=== PATIENT | male | born 1960 | race Caucasian/White ===

== ENCOUNTER 2017-12-06 12:49 | Inpatient (IN) | payer MEDICAID ==
[~2017-12-06] VITALS: Ht 180.3 cm; Wt 50.0 kg
[~2017-12-06 12:49] MED LIST: AMIO200T33 PO; BENA40TA7; CARV6.2551; CARV6.2551 PO; ENAL20TA70 PO; ENALAPRIL; FUR40T GT; FURO20TA3; POTA20TA53; SIMV-13; SPIR25TA89
[2017-12-06] MEDS ORDERED: SODIUM CHLORIDE 0.9% 1,000 ML IV ONE ×3 (13:40→18:30)
[2017-12-06] MEDS ORDERED: VANCOMYCIN 1GM/250ML 250 ML IV ONE (13:45)
[2017-12-06 13:49] LABS: Basophils # (auto) 0 uL; Eosinophils # (auto) 0 uL; Lymphocytes # (auto) 0.4 uL; Monocytes # (auto) 0.7 uL; Red Blood Cells 4.49 10^6/uL (4.5-5.90)
[2017-12-06 13:51] LABS: Basophils % (auto) 0.6 % (0.0-2.0); Eosinophils % (auto) 0.4 % (0.0-7.0); Hematocrit 44.5 % (41.0-53.0); Hemoglobin 15.2 g/dL (13.5-17.5); Lymphocytes % (auto) 4.8 % (10.0-50.0); Mean Corpuscular Hemoglobin 33.9 pg (28.0-32.0); Mean Corpuscular Hgb Conc. 34.2 g/dL (32.0-36.0); Monocytes % (auto) 9.1 % (0.0-12.0); Neutrophils # (auto) 6.9 uL; Neutrophils % (auto) 85.1 % (37.0-80.0); Nucleated Red Blood Cells % 0.5 %; Platelet Count (auto) 58 10^3/uL (140-450); White Blood Cell 8.1 10^3/uL (4.4-10.8)
[2017-12-06 13:56] LABS: Red Cell Distribution Width 28.6 % (11.8-14.3)
[2017-12-06 14:19] LABS: Albumin 1.5 g/dL (3.4-5.0); Calcium 7.2 mg/dL (8.5-10.1); Magnesium 1.6 mg/dL (1.6-2.6)
[2017-12-06 14:28] LABS: Potassium 6.1 mmol/L (3.5-5.1)
[2017-12-06 14:30] LABS: Bilirubin, Total 1.4 mg/dL (0.2-1.0); Total Protein 6.5 g/dL (6.4-8.2)
[2017-12-06] MEDS ORDERED: LIDOCAINE 2% JELLY 11ml (GLYDO) ONE (14:41)
[2017-12-06 14:43] LABS: Amylase 37 U/L (25-115); Lipase 341 U/L (73-393)
[2017-12-06 14:47] LABS: BUN/Creatinine Ratio 20.9
[2017-12-06] MEDS ORDERED: MORPHINE SULF INJ 2 MG/ML SYRINGE 1ML ONE (14:51)
[2017-12-06 14:52] LABS: INR 1.48 (0.9-1.15); Partial Thromboplastin Time 33.8 sec (23.78-33.04); Prothrombin Time 15.5 sec (9.27-12.13)
[2017-12-06 15:00] LABS: Lactic Acid w/Reflex 4.7 mmol/L (0.4-2.0)
[2017-12-06] MEDS ORDERED: CALCIUM GLUC 4.65meq/50ml D5AE 50 ML IV ONE ×2 (15:00)
[2017-12-06] MEDS ORDERED: SODIUM BICARBONATE 8.4 % INJ 50ML VIAL IV ONE (15:00)
[2017-12-06] MEDS ORDERED: LIDOCAINE 2% JELLY 11ml (GLYDO) UR ONE (15:00)
[2017-12-06] MEDS ORDERED: MORPHINE SULFATE 4 MG/ML SYR/VIAL IV ONE (15:00)
[2017-12-06 15:33] LABS: Urine Bacteria MOD /hpf (None Seen); Urine Blood 3+ /uL (Negative); Urine Hyaline Cast MOD /lpf (0 - 2); Urine Mucus FEW (None Seen); Urine Specific Gravity 1.021 (1.001-1.035); Urine WBC 110 /hpf (0 - 3)
[2017-12-06] MEDS: SODIUM CHLORIDE 0.9% 1,000 ML IV SCH (16:48)
[2017-12-06] MEDS ORDERED: DEXTROSE (50%) 50ML SYRG IV PRN (17:00)
[2017-12-06] MEDS ORDERED: TEMAZEPAM 15 MG CAP PO PRN (17:00)
[2017-12-06] MEDS ORDERED: NITROGLYCERIN 0.4 MG SL TAB SL PRN (17:00)
[2017-12-06] MEDS: FUROSEMIDE 40 MG/4 ML VIAL IV ONE (17:00)
[2017-12-06] MEDS ORDERED: PROMETHAZINE HCL 25 MG/ML 1ML IV PRN (17:00)
[2017-12-06] MEDS ORDERED: ALBUTEROL SULF 2.5 MG/0.5ML(0.5%) NEB SOLN NEB PRN (17:00)
[2017-12-06] MEDS ORDERED: cefTRIAXone 1GM/10ml IVPUSH 10 ML IV ONE (17:00)
[2017-12-06] MEDS ORDERED: HYDROcodone-ACET 5/325MG TAB PO PRN (17:00)
[2017-12-06] MEDS ORDERED: MORPHINE SULF INJ 2 MG/ML SYRINGE 1ML IV PRN ×2 (17:00)
[2017-12-06] MEDS ORDERED: VANCOMYCIN PER PHARMACY 0 MG IV SCH (17:00)
[2017-12-06] MEDS ORDERED: SODIUM POLYSTYRENE SULF 15GM/60ML SUSP PO ONE (17:00)
[2017-12-06] MEDS ORDERED: ACETAMINOPHEN 500 MG TAB PO PRN (17:00)
[2017-12-06] MEDS: PANTOPRAZOLE 40 MG TAB PO SCH (17:33)
[2017-12-06] MEDS: ACCU-CHEK COMFORT CURVE STRIP VI SCH ×2 (17:40→22:30)
[2017-12-06] MEDS: InsuLIN REG 1unit/0.01ml Soln (100units/ml) SC SCH ×2 (17:40→22:30)
[2017-12-06] MEDS: ALBUTEROL SULF 2.5 MG/0.5ML(0.5%) NEB SOLN NEB SCH (18:25)
[2017-12-06] MEDS: LEVOFLOXACIN 500MG 100 ML IV SCH (18:27)
[2017-12-06 19:36] VITALS: BP 102/51
[2017-12-06 21:58] LABS: BUN/Creatinine Ratio 21.9; Calcium 6.9 mg/dL (8.5-10.1); Potassium 5.4 mmol/L (3.5-5.1)
[2017-12-07] VITALS (42 sets, daily range): BP systolic 66–147; BP diastolic 25–97
[2017-12-07] MEDS: ALBUTEROL SULF 2.5 MG/0.5ML(0.5%) NEB SOLN NEB SCH ×4 (00:18→18:44)
[2017-12-07] MEDS: SODIUM CHLORIDE 0.9% 1,000 ML IV SCH ×3 (01:42→22:48)
[2017-12-07] MEDS: ACCU-CHEK COMFORT CURVE STRIP VI SCH ×4 (08:08→22:00)
[2017-12-07] MEDS: InsuLIN REG 1unit/0.01ml Soln (100units/ml) SC SCH ×4 (08:08→22:00)
[2017-12-07] MEDS ORDERED: SODIUM CHLORIDE 0.9% 250 ML IV ONE (08:15)
[2017-12-07 08:55] LABS: Basophils # (auto) 0 uL; Basophils % (auto) 0.2 % (0.0-2.0); Eosinophils # (auto) 0 uL; Eosinophils % (auto) 0.2 % (0.0-7.0); Hematocrit 42.1 % (41.0-53.0); Hemoglobin 14.1 g/dL (13.5-17.5); Lymphocytes # (auto) 0.3 uL; Lymphocytes % (auto) 3.1 % (10.0-50.0); Mean Corpuscular Hemoglobin 33.5 pg (28.0-32.0); Mean Corpuscular Hgb Conc. 33.6 g/dL (32.0-36.0); Mean Corpuscular Volume 99.7 fL (80.0-100.0); Monocytes # (auto) 0.8 uL; Monocytes % (auto) 8.4 % (0.0-12.0); Neutrophils # (auto) 8.7 uL; Neutrophils % (auto) 88.1 % (37.0-80.0); Nucleated Red Blood Cells % 0.1 %; Platelet Count (auto) 40 10^3/uL (140-450); Red Blood Cells 4.22 10^6/uL (4.5-5.90); White Blood Cell 9.9 10^3/uL (4.4-10.8)
[2017-12-07 08:58] LABS: Alanine Aminotransferase 39 U/L (16-61); Albumin 0.9 g/dL (3.4-5.0); Alkaline Phosphatase 211 U/L (45-117); Anion Gap 10 (5-15); Aspartate Aminotransferase 57 U/L (15-37); BUN/Creatinine Ratio 21.4; Bilirubin, Total 1.2 mg/dL (0.2-1.0); Blood Urea Nitrogen 22 mg/dL (7-18); Calcium 6.6 mg/dL (8.5-10.1); Carbon Dioxide 15 mmol/L (21-32); Chloride 94 mmol/L (98-107); Cholesterol < 50 mg/dL (< 200); GFR African American 96 mL/min; GFR Non-African American 80 mL/min; Glucose 115 mg/dL (74-106); HDL Cholesterol 22 mg/dL (40-59); LDL Cholesterol 35 mg/dL (< 100); Potassium 4.9 mmol/L (3.5-5.1); Total Protein 5.7 g/dL (6.4-8.2); Triglycerides 28 mg/dL (< 150)
[2017-12-07 09:01] LABS: Red Cell Distribution Width 28.6 % (11.8-14.3)
[2017-12-07 09:02] LABS: Sodium 119 mmol/L (136-145)
[2017-12-07] MEDS: PANTOPRAZOLE 40 MG TAB PO SCH (10:34)
[2017-12-07] MEDS: AMIODARONE HCL 200 MG TAB PO SCH (10:34)
[2017-12-07] MEDS: cefTRIAXone 1GM/10ml IVPUSH 10 ML IV SCH (11:10)
[2017-12-07] MEDS: VANCOMYCIN 1GM/250ML 250 ML IV SCH (11:10)
[2017-12-07] MEDS: NOREPINEPHRINE 8 MG/250ML KIT 250 ML IV SCH (13:30)
[2017-12-07] MEDS: LEVOFLOXACIN 500MG 100 ML IV SCH (18:42)
[2017-12-07] MEDS ORDERED: IOHEXOL 300 MG/ML 100ML BOTTLE IJ ONE (21:43)
[2017-12-08] VITALS (28 sets, daily range): BP systolic 67–112; BP diastolic 27–67
[2017-12-08] MEDS ORDERED: ALBUMIN 5% 250 ML IV ONE
[2017-12-08] MEDS: ALBUTEROL SULF 2.5 MG/0.5ML(0.5%) NEB SOLN NEB SCH ×4 (00:50→18:30)
[2017-12-08 01:08] LABS: Basophils # (auto) 0 uL; Basophils % (auto) 0.3 % (0.0-2.0); Eosinophils # (auto) 0 uL; Hemoglobin 14.8 g/dL (13.5-17.5); Monocytes # (auto) 0.7 uL; Nucleated Red Blood Cells % 0.1 %
[2017-12-08 01:13] LABS: Eosinophils % (auto) 0.2 % (0.0-7.0); Hematocrit 43.4 % (41.0-53.0); Lymphocytes # (auto) 0.3 uL; Lymphocytes % (auto) 3.9 % (10.0-50.0); Mean Corpuscular Hemoglobin 34.2 pg (28.0-32.0); Mean Corpuscular Hgb Conc. 34.1 g/dL (32.0-36.0); Mean Corpuscular Volume 100.2 fL (80.0-100.0); Monocytes % (auto) 9.3 % (0.0-12.0); Neutrophils # (auto) 6.5 uL; Neutrophils % (auto) 86.3 % (37.0-80.0); Platelet Count (auto) 24 10^3/uL (140-450); Red Blood Cells 4.34 10^6/uL (4.5-5.90); White Blood Cell 7.5 10^3/uL (4.4-10.8)
[2017-12-08 01:16] LABS: Red Cell Distribution Width 28.4 % (11.8-14.3)
[2017-12-08] MEDS: VANCOMYCIN 1GM/250ML 250 ML IV SCH ×2 (02:13→19:58)
[2017-12-08 02:17] LABS: Albumin 1.1 g/dL (3.4-5.0); BUN/Creatinine Ratio 20.5; Calcium 6.6 mg/dL (8.5-10.1); Potassium 3.8 mmol/L (3.5-5.1)
[2017-12-08 02:20] LABS: Bilirubin, Total 0.8 mg/dL (0.2-1.0)
[2017-12-08] MEDS: InsuLIN REG 1unit/0.01ml Soln (100units/ml) SC SCH ×4 (06:45→22:20)
[2017-12-08] MEDS: ACCU-CHEK COMFORT CURVE STRIP VI SCH ×4 (06:45→22:10)
[2017-12-08] MEDS: SODIUM CHLORIDE 0.9% 1,000 ML IV SCH ×3 (06:46→22:20)
[2017-12-08] MEDS: PANTOPRAZOLE 40 MG TAB PO SCH (10:00)
[2017-12-08] MEDS: AMIODARONE HCL 200 MG TAB PO SCH (10:31)
[2017-12-08] MEDS: NOREPINEPHRINE 8 MG/250ML KIT 250 ML IV SCH (13:30)
[2017-12-08] MEDS: cefTRIAXone 1GM/10ml IVPUSH 10 ML IV SCH ×2 (14:33→16:00)
[2017-12-08 19:55] LABS: Calcium 6.9 mg/dL (8.5-10.1); Magnesium 1.8 mg/dL (1.6-2.6); Potassium 4.5 mmol/L (3.5-5.1)
[2017-12-08] MEDS ORDERED: SODIUM BICARBONATE 8.4 % INJ 50ML VIAL IV ONE (21:45)
[2017-12-08] MEDS ORDERED: CALCIUM GLUC 4.65meq/50ml D5AE 50 ML IV ONE (21:45)
[2017-12-08] MEDS ORDERED: MAGNESIUM SULFATE 1GM/100ML 100 ML IV ONE (21:45)
[2017-12-09] VITALS (65 sets, daily range): BP systolic 59–123; BP diastolic 26–106
[2017-12-09] MEDS: ALBUTEROL SULF 2.5 MG/0.5ML(0.5%) NEB SOLN NEB SCH ×2 (00:15→07:09)
[2017-12-09] MEDS: LORazepam 0.5 MG TAB PO PRN ×2 (01:09→11:17)
[2017-12-09 04:20] LABS: Basophils # (auto) 0 uL; Eosinophils # (auto) 0 uL; Lymphocytes # (auto) 0.2 uL; Monocytes # (auto) 0.5 uL
[2017-12-09 04:27] LABS: Basophils % (auto) 0.1 % (0.0-2.0); Eosinophils % (auto) 0.1 % (0.0-7.0); Hematocrit 44.1 % (41.0-53.0); Hemoglobin 15.1 g/dL (13.5-17.5); Lymphocytes % (auto) 3.6 % (10.0-50.0); Mean Corpuscular Hemoglobin 34.7 pg (28.0-32.0); Mean Corpuscular Hgb Conc. 34.2 g/dL (32.0-36.0); Mean Corpuscular Volume 101.5 fL (80.0-100.0); Monocytes % (auto) 8.3 % (0.0-12.0); Neutrophils # (auto) 5.7 uL; Neutrophils % (auto) 87.9 % (37.0-80.0); Nucleated Red Blood Cells % 0.4 %; Platelet Count (auto) 49 10^3/uL (140-450); Red Blood Cells 4.35 10^6/uL (4.5-5.90); White Blood Cell 6.5 10^3/uL (4.4-10.8)
[2017-12-09 04:36] LABS: Red Cell Distribution Width 28.4 % (11.8-14.3)
[2017-12-09 04:37] LABS: BUN/Creatinine Ratio 19.5; Calcium 7.3 mg/dL (8.5-10.1); Potassium 3.8 mmol/L (3.5-5.1)
[2017-12-09 04:48] LABS: INR 1.63 (0.9-1.15)
[2017-12-09] MEDS: NOREPINEPHRINE 8 MG/250ML KIT 250 ML IV SCH (05:28)
[2017-12-09] MEDS: InsuLIN REG 1unit/0.01ml Soln (100units/ml) SC SCH ×2 (06:39→11:24)
[2017-12-09] MEDS: ACCU-CHEK COMFORT CURVE STRIP VI SCH ×2 (06:39→11:24)
[2017-12-09 07:23] LABS: Partial Thromboplastin Time 47.8 sec (23.78-33.04)
[2017-12-09] MEDS: cefTRIAXone 1GM/10ml IVPUSH 10 ML IV SCH (09:00)
[2017-12-09] MEDS: AMIODARONE HCL 200 MG TAB PO SCH (10:00)
[2017-12-09] MEDS: PANTOPRAZOLE 40 MG TAB PO SCH (10:00)
[2017-12-09] MEDS ORDERED: MORPHINE SULF INJ 2 MG/ML SYRINGE 1ML IV PRN ×3 (14:15→14:45)
[2017-12-09] MEDS ORDERED: HYDROcodone-ACET 5/325MG TAB PO PRN (14:15)
[2017-12-09] MEDS ORDERED: LORazepam 2MG/ML-1ML VIAL IV PRN (14:45)
== END 2017-12-09 17:35 | disposition expired | DRG 720 ==
LOC: EDBD 12:49 → ER 12:49 → TELE 12:50 → ICU WEST 12-07 00:30
PROVIDERS: ADMIT Internal Medicine; ATTEND Internal Medicine
DX: A41.9 Sepsis, unspecified organism (principal); J96.00 Acute respiratory failure, unspecified whether with hypoxia or hypercapnia; N17.0 Acute kidney failure with tubular necrosis; E43 Unspecified severe protein-calorie malnutrition; I50.33 Acute on chronic diastolic (congestive) heart failure; D68.9 Coagulation defect, unspecified; K65.2 Spontaneous bacterial peritonitis; E87.1 Hypo-osmolality and hyponatremia; D69.59 Other secondary thrombocytopenia; Z94.4 Liver transplant status; I42.7 Cardiomyopathy due to drug and external agent; E87.5 Hyperkalemia; I11.0 Hypertensive heart disease with heart failure; E86.1 Hypovolemia; N39.0 Urinary tract infection, site not specified; E11.9 Type 2 diabetes mellitus without complications; E78.5 Hyperlipidemia, unspecified; K74.60 Unspecified cirrhosis of liver; R18.8 Other ascites; F15.90 Other stimulant use, unspecified, uncomplicated; F31.9 Bipolar disorder, unspecified; J43.9 Emphysema, unspecified; Z51.5 Encounter for palliative care; M19.90 Unspecified osteoarthritis, unspecified site; Z53.9 Procedure and treatment not carried out, unspecified reason; K76.6 Portal hypertension; J98.11 Atelectasis; Z82.49 Family history of ischemic heart disease and other diseases of the circulatory system; Z87.891 Personal history of nicotine dependence; Z95.810 Presence of automatic (implantable) cardiac defibrillator
CPT/HCPCS: 36415; 36600; 51702; 71046; 71260; 76604; 76705; 80048; 80053; 80061; 80162; 80202; 81001; 82150; 82805; 82962; 83036; 83605; 83690; 83735; 83880; 84443; 84484; 85025; 85610; 85652; 85730; 86141; 87040; 87081; 87086; 93005; 94640; 94761; 96365; 96375; 99291; A6257; J0610; J0696; J1815; J1956